=== PATIENT | female | born 1995 | race African-American/Black ===

== ENCOUNTER 2022-12-27 23:12 | Emergency (ER) | payer MEDICAID ==
[~2022-12-27] VITALS: Ht 170.2 cm; Wt 68.0 kg
[2022-12-27 23:58] VITALS: O2SAT 99
[2022-12-28] MEDS ORDERED: AMOX-494 MT (01:25)
[2022-12-28] MEDS ORDERED: KETOROLAC 30MG/ML VIAL IM ONE (01:30)
[2022-12-28] MEDS ORDERED: ACETAMINOPHEN 650MG/20.3ML UDC PO ONE (01:30)
[2022-12-28] MEDS ORDERED: ACET-2708 MT (01:31)
[2022-12-28 01:37] VITALS: BP 149/96
[2022-12-28 01:53] VITALS: PULSE 88; RESP 16; TEMP 98.4
== END 2022-12-28 01:54 | disposition home or self-care (01) ==
LOC: ER 23:12
DX: H66.92 Otitis media, unspecified, left ear (principal)
CPT/HCPCS: 99283; 81025; 96372; J1885